=== PATIENT | female | born 1995 | race Two or more races ===

== ENCOUNTER 2025-11-24 22:10 | Emergency (ER) | payer MEDICAID, OTHER ==
[~2025-11-24] VITALS: Ht 154.9 cm; Wt 140.0 kg
[2025-11-24 22:40] VITALS: O2SAT 93
--- NOTE | 2025-11-24 22:47 | ED.PDOC ---
History of Present Illness HPI Comments 30 y/o F is BIBA from private residence for c/c alcohol intoxication. Per EMS personnel report, spouse called after patient became inconsolable and crying frantically after drinking excessive amounts of alcohol, earlier, today. History for depression and anxiety. Patient reports on history of drinking, due to personal relationship issues regarding her and her spouse's marriage. On scene, patient was found covered in vomit but all vitals were reported to have been stable and within normal limits. Chief Complaint: ETOH Time Seen by MD: 22:30 Reviewed Notes: Nurses Notes, Medications, Allergies Allergies: Coded Allergies: NO KNOWN ALLERGIES (Unverified , 11/24/25) Information Source: Patient, Emergency Med Personnel Mode of Arrival: EMS Severity: Moderate Timing: Hours Duration: Since onset Prehospital treatment: 12 Lead EKG, County Attorney Past Medical History PAST MEDICAL HISTORY: Anxiety, Depression Surgical History: Denies all surgeries CUSTOM CLOTHIER History: No Pertinent CUSTOM CLOTHIER History Family History Family History: Unknown Social History Smoker: Non-Smoker Alcohol: Heavy Drugs: Denies Drug Use Lives In: Home All Other Systems: Reviewed and Negative (As per HPI) Physical Exam General Appearance: No Apparent Distress, Normal HEENT: Normal ENT Inspection, Pharynx Normal, TMs Normal Neck: Full Range of Motion, Non-Tender, Normal, Normal Inspection Respiratory: Chest Non-Tender, Lungs Clear, No Accessory Muscle Use, No Respiratory Distress, Normal Breath Sounds Cardiovascular: No Edema, No JVD, No Murmur, No Gallop, Normal Peripheral Pulses, Regular Rate/Rhythm Breast Exam: Deferred Gastrointestinal: No Organomegaly, Non Tender, No Pulsatile Mass, Normal Bowel Sounds, Soft Genitalia: Deferred Pelvic: Deferred Rectal: Deferred Extremities: No calf tenderness, Normal capillary refill, Normal inspection, Normal range of motion, Non-tender, No pedal edema Musculoskeletal : Apperance: Normal Neurologic: Alert, horticulture instructor II-XII nml as Tested, No Motor Deficits, No Sensory Deficits, Other (tearful affect ) Cerebellar Function: Normal Reflexes: Normal Skin: Dry, Normal Color, Warm Lymphatic: No Adenopathy Was a procedure done? Was a procedure done?: No Differential Dx Considerations may include: anxiety, depression, hopelessness, dehydration, electrolyte imbalance, substance abuse/dependency, among others X-Ray, Labs, Meds, VS Vital Signs Date Time Temp Pulse Resp B/P (MAP) Pulse Ox O2 Delivery O2 Flow Rate FiO2 11/24/25 22:49 97.9 91 21 119/88 (98) 100 97.9 11/24/25 22:40 93 Room Air* 0 21 11/24/25 22:10 97.6 95 20 100/70 98 97.6 Lab Test 11/24/25 23:00 Range/Units White Blood Count 11.1 H 4.4-10.8 10^3/uL Red Blood Count 4.19 4.0-5.20 10^6/uL Hemoglobin 12.4 12.2-16.2 g/dL Hematocrit 37.7 36.0-46.0 % Mean Corpuscular Volume 89.8 80.0-100.0 fL Mean Corpuscular Hemoglobin 29.6 28.0-32.0 pg Mean Corpuscular Hemoglobin Concent 33.0 32.0-36.0 g/dL Red Cell Distribution Width 14.4 H 11.8-14.3 % Platelet Count 329 140-450 10^3/uL Mean Platelet Volume 7.6 6.9-10.8 fL Neutrophils (%) (Auto) 85.6 H 37.0-80.0 % Lymphocytes (%) (Auto) 9.5 L 10.0-50.0 % Monocytes (%) (Auto) 4.0 0.0-12.0 % Eosinophils (%) (Auto) 0.2 0.0-7.0 % Basophils (%) (Auto) 0.7 0.0-2.0 % Neutrophils # (Auto) 9.5 H 1.6-8.6 10 ^3/uL Lymphocytes # (Auto) 1.1 0.4-5.4 10 ^3/uL Monocytes # (Auto) 0.4 0-1.3 10 ^3/uL Eosinophils # (Auto) 0 0-0.8 10 ^3/uL Basophils # (Auto) 0.1 0-0.2 10 ^3/uL Nucleated Red Blood Cells 0.1 % Sodium Level 142 136-145 mmol/L Potassium Level 3.5 3.5-5.1 mmol/L Chloride Level 109 H 98-107 mmol/L Carbon Dioxide Level 21 20-31 mmol/L Anion Gap 12 5-15 Blood Urea Nitrogen 7 L 9-23 mg/dL Creatinine 0.63 0.550-1.02 mg/dL Glomerular Filtration Rate Calc 124 >90 mL/min BUN/Creatinine Ratio 11.1 10.0-20.0 Serum Glucose 99 74-106 mg/dL Calcium Level 8.7 8.7-10.4 mg/dL Magnesium Level 2.1 1.6-2.6 mg/dL Total Bilirubin 0.4 0.2-1.0 mg/dL Aspartate Amino Transferase (AST) 30 13-40 U/L Alanine Aminotransferase (ALT) 21 7-40 U/L Alkaline Phosphatase 59 46-116 U/L Total Protein 7.2 5.7-8.2 g/dL Albumin 4.3 3.2-4.8 g/dL Plasma/Serum Blood Alcohol 283.0 H <10 mg/dL Current Medications Medications (Trade) Dose Ordered Sig/Richie Route Start Time Stop Time Status Last Admin Haloperidol Lactate (Haldol) 10 mg ONCE ONCE IM 11/24/25 23:00 11/24/25 23:01 DC 11/24/25 23:10 Ondansetron HCl (Zofran) 4 mg ONCE ONCE IV 11/24/25 23:30 11/24/25 23:31 DC 11/24/25 23:35 Sodium Chloride 1,000 ml @ 1,000 mls/hr Q1H ONCE IV 11/25/25 00:00 11/25/25 00:59 DC 11/25/25 00:05 Sodium Chloride 1,000 ml @ 1,000 mls/hr Q1H ONCE IV 11/25/25 03:15 11/25/25 04:14 11/25/25 03:38 Time of 1ST Reevaluation: 23:10 Reevaluation 1ST: Unchanged Patient Education/Counseling: Diagnosis, Treatment, Need For Follow Up Family Education/Counseling: No Family Present SEPSIS Sepsis Screen Date sepsis recognized/suspect: Nov 24, 2025 Time Sepsis recognized/suspect: 2209 Recent Procedure: No On Antibiotic Therapy: No Respiratory Rate >20: No Heart Rate >90: No Temp<36 C (96.8 F) or >38.3 C: No SBP <90 or MAP <65 mmHG: No New Acute Mental Status Change: No Is the patient on CPAP, BIPAP,: No Physician Orders County Attorney (11/24/25 22:50) Pulse Oximetry (11/24/25 22:50) Sodium Chloride 0.9% (11/25/25 03:15) Vital Signs Date Time Temp Pulse Resp B/P (MAP) Pulse Ox O2 Delivery O2 Flow Rate FiO2 11/24/25 22:49 97.9 91 21 119/88 (98) 100 97.9 11/24/25 22:40 93 Room Air* 0 21 11/24/25 22:10 97.6 95 20 100/70 98 97.6 Laboratory Tests Test 11/24/25 23:00 White Blood Count 11.1 10^3/uL (4.4-10.8) H Medications Medications Dose Ordered Sig/Richie Route Start Time Stop Time Status Last Admin Dose Admin Haloperidol Lactate 10 mg ONCE ONCE IM 11/24/25 23:00 11/24/25 23:01 DC 11/24/25 23:10 Ondansetron HCl 4 mg ONCE ONCE IV 11/24/25 23:30 11/24/25 23:31 DC 11/24/25 23:35 Sodium Chloride 1,000 ml @ 1,000 mls/hr Q1H ONCE IV 11/25/25 00:00 11/25/25 00:59 DC 11/25/25 00:05 Sodium Chloride 1,000 ml @ 1,000 mls/hr Q1H ONCE IV 11/25/25 03:15 11/25/25 04:14 11/25/25 03:38 Departure 1 Departure Time of Disposition: 05:00 Impression: Primary Impression: Alcohol intoxication Disposition: 01 HOME / SELF CARE / HOMELESS Condition: Stable Discharged With: Relative (Mother) Comments Patient was observed for an extended period of time in the emergency department. On re-evaluation the patient is alert with a GCS of 15. Patient is ambulatory with a steady gait. Patient's mother will take her home and observe her Critical Care Note Critical Care Time?: No Stability Stability form required: No Heart Score Heart Score: Heart Score Response (Comments) Value History N/A 0 EKG N/A 0 Age N/A 0 Risk Factors N/A 0 Troponin N/A 0 Total 0 I personally scribed for KATIE FERRO MD ([email or web address]) on 11/24/25 at 22:47. Electronically submitted by Shaw Mark ([email or web address]). I personally scribed for KATIE FERRO MD ([email or web address]) on 11/24/25 at 23:01. Electronically submitted by Shaw Mark ([email or web address]). KATIE FERRO MD Nov 24, 2025 22:47
[2025-11-24 23:09] LABS: Hematocrit 37.7 % (36.0-46.0); Hemoglobin 12.4 g/dL (12.2-16.2); Mean Corpuscular Hemoglobin 29.6 pg (28.0-32.0); Mean Corpuscular Volume 89.8 fL (80.0-100.0); Nucleated Red Blood Cells % 0.1 %
[2025-11-24] MEDS: HALOPERIDOL LACTATE 5 MG/ML INJ VIAL IM ONE (23:10)
[2025-11-24 23:26] LABS: Alanine Aminotransferase 21 U/L (7-40); Alkaline Phosphatase 59 U/L (46-116); Anion Gap 12 (5-15); BUN/Creatinine Ratio 11.1 (10.0-20.0); Carbon Dioxide 21 mmol/L (20-31); Glucose 99 mg/dL (74-106); Magnesium 2.1 mg/dL (1.6-2.6); Sodium 142 mmol/L (136-145); Total Protein 7.2 g/dL (5.7-8.2)
[2025-11-24 23:27] LABS: Albumin 4.3 g/dL (3.2-4.8); Bilirubin, Total 0.4 mg/dL (0.2-1.0)
[2025-11-24 23:28] LABS: Blood Urea Nitrogen 7 mg/dL (9-23); Calcium 8.7 mg/dL (8.7-10.4); Chloride 109 mmol/L (98-107); Potassium 3.5 mmol/L (3.5-5.1)
[2025-11-24] MEDS: ONDANSETRON HCL 4 MG/2 ML VIAL ONE (23:35)
[2025-11-24] MEDS: ONDANSETRON HCL 4 MG/2 ML VIAL IV ONE (23:35)
[2025-11-25] MEDS: SODIUM CHLORIDE 0.9% 1,000 ML IV ONE ×2 (00:05→03:38)
[2025-11-25 05:20] VITALS: BP 95/61; PULSE 75; RESP 17; TEMP 98.1; O2SAT 95
== END 2025-11-25 05:31 | disposition home or self-care (01) ==
LOC: EDBD 22:10 → ER 22:10
DX: F10.129 Alcohol abuse with intoxication, unspecified (principal); Y90.8 Blood alcohol level of 240 mg/100 ml or more
CPT/HCPCS: 36415; 80053; 80320; 83735; 85025; 96361; 96372; 96374; 99285; J1630; J2405; J7030